=== PATIENT | female | born 1995 | race Hispanic/Latino ===

== ENCOUNTER 2017-04-29 09:15 | Emergency (ER) | payer BC, OTHER ==
[2017-04-29] MEDS ORDERED: cefTRIAXone\\ROCEPHIN 500 MG VIAL ONE (10:10)
[2017-04-29] MEDS ORDERED: Lidocaine 1% 20 ML MDV ONE (10:10)
== END 2017-04-29 10:40 | disposition home or self-care (01) ==
LOC: NAV ERS 09:15
DX: K13.0 Diseases of lips (principal); L03.211 Cellulitis of face
CPT/HCPCS: 96372; J0696; J2001

== ENCOUNTER 2017-06-22 18:46 | Emergency (ER) | payer OTHER ==
[2017-06-22] MEDS ORDERED: Sodium Chloride 0.9% 1,000 ML ONE ×2 (19:59→21:00)
[2017-06-22] MEDS ORDERED: Acetaminophen 500 MG TAB ONE (20:02)
[2017-06-22 20:14] LABS: #Basophils 0.1 thou/uL (0.0-0.2); #Lymphocytes 1.4 thou/uL (1.20-3.40); #Monocytes 0.7 thou/uL (0.11-0.59); #Neutrophils 13.6 thou/uL (1.40-6.50); %Basophils 0.4 % (0.0-1.0); %Eosinophils 0.2 % (0.0-10.0); %Monocytes 4.4 % (0.0-10.0); %Neutrophils 85.9 % (42.0-75.0); Hemoglobin 12.9 g/dL (12.0-16.0); Mean Corpuscular HGB CONC 30.9 g/dL (32.0-36.0); Mean Corpuscular Hemoglobin 22.1 pg (27.0-31.0); Mean Corpuscular Volume 71.6 fl (81.0-99.0); Mean Platelet Volume 7.5 fL (7.4-10.4); Platelet Count 258 thou/uL (130-400); RBC Distribution Width 14.1 % (11.5-14.5); Red Blood Cell (RBC) Count 5.82 mill/uL (4.20-5.40); White Blood Cell (WBC) Count 15.8 thou/uL (4.8-10.8)
[2017-06-22 20:22] LABS: Bilirubin Negative (Negative); Blood, Urine Moderate (Negative); Clarity Clear (Clear); Glucose, Urine (Dipstick) Negative (Negative); Leukocyte Trace (Negative); Nitrite Negative (Negative); Protein, Urine (Dipstick) Negative (Neg-Trace); Specific Gravity, Urine 1.015 (1.005-1.030)
[2017-06-22 20:26] LABS: Pregnancy Test - Urine (BHCG) Negative (NEGATIVE); Pregu Control Background? CLEAR/WHITE (CLR/WHITE); Pregu Control Bar Appear? YES (CONTROL BAR); Specific Gravity 1.015 (1.002-1.036)
[2017-06-22 20:30] LABS: ALT (SGPT) 16 U/L (8-55); AST (SGOT) 15 U/L (5-34); Albumin 4.2 g/dL (3.5-5.0); Alkaline Phosphatase 54 U/L (40-150); Anion Gap 15 mmol/L (10-20); BUN (Urea Nitrogen) 10 mg/dL (7.0-18.7); Bilirubin, Total 0.9 mg/dL (0.2-1.2); Calc. Creatinine Clearance 0 mL/min (70-130); Calcium 9.5 mg/dL (7.8-10.44); Carbon Dioxide 21 mmol/L (22-29); Chloride 106 mmol/L (98-107); Estimated GFR-MDRD 84; Globulin 3.2 g/dL (2.4-3.5); Glucose 109 mg/dL (70-105); Potassium 3.6 mmol/L (3.5-5.1); Protein, Total 7.4 g/dL (6.0-8.3); Sodium 138 mmol/L (136-145)
[2017-06-22 20:34] LABS: Bacteria/HPF 2+ HPF (None Seen); RBC/HPF 0-3 HPF (0-3); WBC/HPF 21-50 HPF (0-3)
[2017-06-22 20:56] LABS: MDiff Complete? YES; Microcytosis SLIGHT = 6-15 cells (100X) (0-5/hpf); PLT Morphology Comment Appears Adequate
[2017-06-22] MEDS ORDERED: Ibuprofen 200 MG TAB ONE (22:15)
== END 2017-06-22 23:05 | disposition home or self-care (01) ==
LOC: NAV ERS 18:46
DX: N10 Acute pyelonephritis (principal)
CPT/HCPCS: 80053; 81003; 81015; 81025; 83605; 85025; 87040; 96361; 96365; J1956; J7050

== ENCOUNTER 2022-08-29 10:14 | Emergency (ER) | payer BC, OTHER | END 2022-08-29 10:20 | disposition left against medical advice (07) | LOC: NAV ERS 10:14 | DX: Z53.21 Procedure and treatment not carried out due to patient leaving prior to being seen by health care provider (principal) ==

== ENCOUNTER 2022-09-01 07:15 | Emergency (ER) | payer BC, OTHER ==
[2022-09-01] MEDS ORDERED: diphenhydrAMINE 25 MG CAP ONE (08:01)
[2022-09-01] MEDS ORDERED: Acetaminophen 500 MG TAB ONE (08:01)
[2022-09-01 08:35] LABS: Bilirubin Negative (Negative); Blood, Urine Trace (Negative); Clarity Slightly Cloudy (Clear); Glucose, Urine (Dipstick) Negative (Negative); Ketone, Urine Negative (Negative); Leukocyte Negative (Negative); Nitrite Negative (Negative); Protein, Urine (Dipstick) Negative (Neg-Trace); Urobilinogen 0.2 mg/dL (Less than 2)
[2022-09-01 08:38] LABS: Pregnancy Test - Urine (BHCG) POSITIVE (Negative)
[2022-09-01 08:39] LABS: Pregu Control Background? CLEAR/WHITE (CLR/WHITE); Pregu Control Bar Appear? YES (CONTROL BAR)
[2022-09-01 08:44] LABS: Bacteria/HPF Rare-Few HPF (None Seen); RBC/HPF 0-3 HPF (0-3); WBC/HPF None Seen HPF (0-3)
== END 2022-09-01 08:58 | disposition home or self-care (01) ==
LOC: NAV ERS 07:15
DX: O99.511 Diseases of the respiratory system complicating pregnancy, first trimester (principal); J06.9 Acute upper respiratory infection, unspecified; Z20.822 Contact with and (suspected) exposure to COVID-19; Z3A.01 Less than 8 weeks gestation of pregnancy
CPT/HCPCS: 81003; 81015; 81025; 87081; 87430; 99284; U0003; U0005

== ENCOUNTER 2022-12-14 17:39 | Emergency (ER) | payer OTHER, BC | END 2022-12-14 18:16 | disposition home or self-care (01) | LOC: NAV ERS 17:39 | DX: O99.892 Other specified diseases and conditions complicating childbirth (principal); R51.9 Headache, unspecified; R53.81 Other malaise; R68.83 Chills (without fever); Z20.822 Contact with and (suspected) exposure to COVID-19; Z3A.20 20 weeks gestation of pregnancy | CPT/HCPCS: 99284; U0003; U0005 ==

== ENCOUNTER 2023-07-06 08:13 | Emergency (ER) | payer BC, OTHER ==
[2023-07-06] MEDS ORDERED: Iopamidol 370 76% 100 ML VIAL ONE (09:00)
[2023-07-06 09:02] LABS: Bilirubin Negative (Negative); Blood, Urine Negative (Negative); Clarity Clear (Clear); Glucose, Urine (Dipstick) Negative (Negative); Ketone, Urine Negative (Negative); Leukocyte Negative (Negative); Nitrite Negative (Negative); Protein, Urine (Dipstick) Negative (Neg-Trace); Specific Gravity, Urine 1.015 (1.005-1.030); Urobilinogen 0.2 mg/dL (Less than 2)
[2023-07-06 09:03] LABS: Pregnancy Test - Urine (BHCG) Negative (Negative)
[2023-07-06 09:04] LABS: Pregu Control Background? CLEAR/WHITE (CLR/WHITE); Pregu Control Bar Appear? YES (CONTROL BAR); Specific Gravity 1.015 (1.002-1.036)
[2023-07-06 09:08] LABS: Squamous Epithelial 0-3 HPF (0-3)
[2023-07-06 09:10] LABS: AST (SGOT) 21 U/L (5-34); Albumin 4.2 g/dL (3.5-5.0); Alkaline Phosphatase 54 U/L (40-110); Anion Gap 11 mmol/L (10-20); BUN (Urea Nitrogen) 16 mg/dL (7.0-18.7); Bilirubin, Total 0.5 mg/dL (0.2-1.2); Calc. Creatinine Clearance 0 mL/min (70-130); Calcium 9.5 mg/dL (7.8-10.44); Carbon Dioxide 25 mmol/L (22-29); Chloride 105 mmol/L (98-107); Estimated GFR 92; Glucose 91 mg/dL (70-105); Lipase 19 U/L (8-78); Potassium 4.1 mmol/L (3.5-5.1); Protein, Total 7.2 g/dL (6.0-8.3); Sodium 137 mmol/L (136-145)
[2023-07-06 09:14] LABS: #Basophils 0.1 thou/uL (0.0-0.2); #Eosinphils 0.4 thou/uL (0.0-0.7); #Lymphocytes 2.9 thou/uL (1.20-3.40); #Monocytes 0.6 thou/uL (0.11-0.59); #Neutrophils 3.9 thou/uL (1.40-6.50); %Basophils 1.3 % (0.0-1.0); %Eosinophils 5.6 % (0.0-10.0); %Lymphocytes 36.6 % (21.0-51.0); %Monocytes 7.2 % (0.0-10.0); %Neutrophils 49.4 % (42.0-75.0); Hematocrit 36.4 % (36.0-47.0); Hemoglobin 10.7 g/dL (12.0-16.0); Mean Corpuscular HGB CONC 29.4 g/dL (32.0-36.0); Mean Corpuscular Hemoglobin 20.1 pg (27.0-31.0); Mean Corpuscular Volume 68.4 fl (78.0-98.0); Mean Platelet Volume 7.5 fL (7.4-10.4); Platelet Count 319 10x3/uL (130-400); RBC Distribution Width 15.1 % (11.5-14.5); Red Blood Cell (RBC) Count 5.32 mill/uL (4.20-5.40); White Blood Cell (WBC) Count 7.8 10x3/uL (4.8-10.8)
[2023-07-06 21:24] LABS: ALT (SGPT) 35 U/L (8-55)
== END 2023-07-06 10:55 | disposition home or self-care (01) ==
LOC: NAV ERS 08:13
DX: K42.9 Umbilical hernia without obstruction or gangrene (principal)
CPT/HCPCS: 74177; 80053; 81001; 81025; 83605; 83690; 85025; Q9967

== ENCOUNTER 2024-03-19 19:55 | Emergency (ER) | payer BC, MEDICAID | END 2024-03-19 20:54 | disposition home or self-care (01) | LOC: NAV ERS 19:55 | DX: J02.9 Acute pharyngitis, unspecified (principal) | CPT/HCPCS: 87081; 87430; 99283 ==

== ENCOUNTER 2025-07-31 15:24 | Emergency (ER) | payer BC, OTHER ==
[2025-07-31 16:13] LABS: Glucose, Urine (Dipstick) Negative (Negative); Leukocyte Trace (Negative); Protein, Urine (Dipstick) Trace mg/dL (Neg-Trace); Specific Gravity, Urine 1.025 (1.005-1.030)
[2025-07-31 16:14] LABS: Bacteria/HPF 3+ HPF (None Seen); CAUTI Indications for Culture Dysuria,urgency,freq; WBC/HPF 21-50 HPF (0-3)
[2025-07-31 16:15] LABS: Urine Culture Reflex Yes Yes
== END 2025-07-31 16:58 | disposition home or self-care (01) ==
LOC: NAV ERS 15:24
DX: O23.12 Infections of bladder in pregnancy, second trimester (principal); N30.00 Acute cystitis without hematuria; O13.2 Gestational [pregnancy-induced] hypertension without significant proteinuria, second trimester; Z3A.22 22 weeks gestation of pregnancy
CPT/HCPCS: 81001; 87077; 87086; 99283